=== PATIENT | female | born 1960 | race Caucasian/White ===

== ENCOUNTER 2025-02-06 06:23 | Day surgery (SDC) | payer MEDICARE, SELFPAY ==
[2025-02-06] VITALS (8 sets, daily range): BP systolic 121–152; BP diastolic 63–80; BMI 22.2
[2025-02-06] MEDS: TYLENOL 1000 MG PO (09:03)
[2025-02-06] MEDS: CELEBREX 200 MG PO (09:03)
[2025-02-06] MEDS: NORMOSOL-R/PLASMALYTE-A 1000 IV (09:03)
--- NOTE | 2025-02-07 10:12 | OR.RPT ---
Operative Report
Operative Report
Operative Report
Patient Name: Sydney Warren

Date of Surgery: 02/05/2025
Surgeon: Quan Schilling DPM
Distribution A Class Lineman: Shirley Steve DPM
Pre-operative diagnosis:
Right hallux valgus deformity
Post-operative diagnosis:
Same as preoperative
Procedure:
Right Parth bunionectomy (CPT 96559)
Anesthesia:
General anesthesia with local block of 20ccs of 0.5% bupivacaine plain
Hemostasis:
Pneumatic ankle tourniquet which remained inflated at 250mmHg for the entirety of the procedure
Estimated blood loss:
Minimal
Specimens:
None
Implants:
Two [place] 3.0 mm MicroAsnis screws
Complications:
None
Indications for Procedure:
The patient is a 64 year old female who presented with a symptomatic right hallux valgus deformity characterized by pain, progressive medial eminence prominence, difficulty with footwear, and worsening alignment despite conservative measures
including shoe modification, orthotics, and activity modification. Radiographs showed an increased intermetatarsal angle and hallux valgus angle consistent with a deformity amenable to a Parth osteotomy. Given the patient�s symptoms and deformity
severity, operative correction was recommended. Risks, benefits, and alternatives of the procedure were discussed and the patient elected to proceed with surgery.
Description of Procedure:
The patient was brought to the operating room and placed supine on the operating table. After induction of general anesthesia, a local block was administered along the course of the medial eminence and first ray. A pneumatic ankle tourniquet was
applied, and the right lower extremity was prepped and draped in the usual sterile fashion. The ankle tourniquet was inflated after exsanguination.
A longitudinal incision was made over the dorsomedial aspect of the first metatarsophalangeal joint. Sharp and blunt dissection was carried through the subcutaneous tissues, protecting all neurovascular structures. The medial capsule was incised,
exposing the prominent medial eminence. A standard lateral release was then performed through a dorsal first interspace approach, including release of the adductor hallucis tendon, fibular sesamoid ligament, and lateral capsule to fully mobilize the
hallux.
Attention was turned back to the medial aspect. A capsulotomy was performed and the first metatarsophalangeal joint was exposed showing mild degenerative changes. The medial eminence was resected using a sagittal saw. A Parth (long dorsal arm)
distal metatarsal osteotomy was then created in a chevron-type fashion. The dorsal arm of the osteotomy was extended proximally to provide enhanced rotational stability.
The capital fragment was shifted laterally to correct the intermetatarsal angle. Once appropriate alignment was confirmed both visually and fluoroscopically, fixation was achieved using two 3.0 mm � 16 mm [employer] MicroAsnis screws placed in standard
Parth construct orientation. Screw placement and osteotomy compression were confirmed with intraoperative fluoroscopy.
The medial capsule was imbricated to further correct valgus alignment. The wound was irrigated with sterile saline. Layered closure was performed with 2-0 vicryl sutures for deep tissues, 3-0 vicryl for subcutaneous tissues and 4-0 monocryl in a
running subcuticular fashion for the skin. A sterile dressing was applied. The tourniquet was released with immediate perfusion noted to the toes and foot.
The patient tolerated the procedure well with no complications.
Postoperative Plan:
� Heel weight bearing in a postoperative shoe
� Keep dressing clean, dry, and intact
� Elevation and icing for edema control
� Follow-up in 10�14 days for dressing change and incision check
� Radiographs at first postoperative visit
� Transition to athletic shoe at 6�8 weeks as alignment and osteotomy healing allow
� Gradual return to full activity as tolerated
== END 2025-02-06 13:20 | disposition home or self-care (01) ==
LOC: SDS 06:23
PROVIDERS: ATTENDING PHYSICIAN Student in an Organized Health Care Education/Training Program; FAMILY PHYSICIAN Student in an Organized Health Care Education/Training Program
DX: M20.11 Hallux valgus (acquired), right foot (principal)
CPT/HCPCS: 28296; C1713